=== PATIENT | male | born 1975 | race Caucasian/White ===

== ENCOUNTER 2019-02-17 14:15 | Inpatient (IN) | payer OTHER, SELFPAY ==
[~2019-02-17 14:15] MED LIST: Heparin 1,000 UNITS/ML VIAL ONE; Lidocaine 1% PF 5 ML VIAL ONE; PROPOFOL 200 MG/20 ML VIAL ONE
[2019-02-17 14:47] LABS: Hemoglobin 13.6 g/dL (14.0-18.0); Mean Corpuscular HGB CONC 33.3 g/dL (32.0-36.0); Mean Corpuscular Hemoglobin 28.8 pg (27.0-31.0); Mean Corpuscular Volume 86.7 fL (78.0-98.0); Mean Platelet Volume 8.2 fL (7.4-10.4); Platelet Count 251 thou/uL (130-400); RBC Distribution Width 11.7 % (11.5-14.5); Red Blood Cell (RBC) Count 4.73 mill/uL (4.70-6.10); White Blood Cell (WBC) Count 21.9 thou/uL (4.8-10.8)
[2019-02-17] MEDS ORDERED: Acetaminophen 325 MG TAB ONE (14:47)
--- NOTE | 2019-02-17 14:51 | RAD ---
Exam: XR Knee Rt 4 View STANDARD HISTORY: Right knee pain with redness and swelling after a fall on Saturday. COMPARISON: None FINDINGS: There is evidence of a small suprapatellar joint effusion. No acute fracture, dislocation, or other acute osseous abnormality is identified. IMPRESSION: 1. Small suprapatellar joint effusion. If there is concern for infection, needle sampling may be alysa anted. 2. No acute osseous abnormality.
[2019-02-17 15:03] LABS: Band 31 % (5-11); Dohle Bodies SLIGHT; Lymphocytes 1 % (21-51); MDiff Complete? YES; Monocytes 5 % (0-10); Neutrophil 63 % (42-75); Platelet Morphology Comment Appears Adequate; RBC Morphology Normal; Vacuoles SLIGHT
[2019-02-17 15:10] LABS: ALT (SGPT) 50 U/L (8-55); AST (SGOT) 55 U/L (5-34); Albumin 3.7 g/dL (3.5-5.0); Alkaline Phosphatase 273 U/L (40-110); Anion Gap 15 mmol/L (10-20); BUN (Urea Nitrogen) 28 mg/dL (8.9-20.6); Bilirubin, Total 2.1 mg/dL (0.2-1.2); CK (CPK) 81 U/L (30-200); Calc. Creatinine Clearance 0 mL/min (70-130); Calcium 9.4 mg/dL (7.8-10.44); Carbon Dioxide 27 mmol/L (22-29); Chloride 89 mmol/L (98-107); Estimated GFR-MDRD 60; Glucose 147 mg/dL (70-105); Potassium 4.7 mmol/L (3.5-5.1); Protein, Total 7.7 g/dL (6.0-8.3); Sodium 126 mmol/L (136-145)
[2019-02-17] MEDS ORDERED: Lidocaine 1% w/Epinephrine 1:100K 20 ML VIAL ONE (15:10)
[2019-02-17] MEDS ORDERED: Morphine 4 MG/ML VIAL ONE ×2 (15:17→19:34)
[2019-02-17] MEDS ORDERED: Piperacillin/Tazobactam 4.5 GM VIAL ONE (15:17)
[2019-02-17] MEDS ORDERED: HYDROcodone/Acetaminophen 10/325 mg Tablet PO PRN (16:23)
[2019-02-17] MEDS ORDERED: traMADol HCl 50 MG TAB PO PRN (16:23)
[2019-02-17] MEDS ORDERED: Ondansetron PF 4 MG/2 ML Vial IV PRN (16:23)
[2019-02-17] MEDS ORDERED: Acetaminophen 325 MG TAB PO PRN (16:23)
[2019-02-17] MEDS ORDERED: Fentanyl 100 MCG/2 ML VIAL SLOW IVP PRN (16:23)
[2019-02-17] MEDS ORDERED: Communication Order-Pharmacy FS SCH (16:30)
--- NOTE | 2019-02-17 16:33 | RAD ---
Chest AP view INDICATION: Fever COMPARISON: None FINDINGS: Lungs:There is airspace opacity in the right lower lobe suspicious for developing pneumonia. Cardiac silhouette:The cardiomediastinal silhouette appears within normal limits. Pulmonary vasculature:Normal Pleural spaces:No pleural effusion or pneumothorax is demonstrated. Upper abdomen:No abnormality seen. Osseous structures: No acute osseous abnormality. Additional findings:None. IMPRESSION: Patchy airspace opacity right lower lobe suspicious for developing pneumonia. Recommend r adiographic follow-up to resolution.
[2019-02-17 16:38] LABS: RBC Count-Automated (BF) 84090 /cumm
[2019-02-17 16:46] LABS: BF Color Yellow; Body Fluid Source Synovial Fluid; Clarity Cloudy/Turbid (Clear); Tube # EDTA; WBC/Nucleated-Auto (BF) Greater than 51000 uL
--- NOTE | 2019-02-17 17:03 | HP ---
This is Delia Stout PA-C dictating a report for Jean Carrizales MD. REQUESTING PHYSICIAN: Dr. Philip Preciado. REASON FOR ADMISSION: Right septic knee. HISTORY OF PRESENT ILLNESS: This is a 43-year-old male, who presented to the [facility] today with complaints of redness and swelling to the right knee after a fall on Saturday and fever starting on Saturday. After further questioning, the patient states that he did 1st fall on his knee more than a week ago while playing basketball. He then went to the beach several days later. When he returned into [facility], he states he was working in the kitchen when he fell feeling that his medial knee was injured. He noted some swelling and then the following day noted redness. That is when his fever began. His family member at bedside states that his fever was 102, starting on Saturday, and over the last two days, has been up to 100. He has had some confusion and generalized malaise. No numbness or tingling. He has been active overall. PAST MEDICAL HISTORY: The patient denies. PAST SURGICAL HISTORY: The patient has no surgical history. SOCIAL HISTORY: The patient drinks approximately 1 to 2 beverages per week. He uses Nicorette gum daily. He is currently employed in [employer]. He lives at home with family. FAMILY HISTORY: Reviewed and noncontributory. REVIEW OF SYSTEMS: 10-point review of systems conducted and otherwise negative except for stated above. PHYSICAL EXAMINATION: VITAL SIGNS: Blood pressure of 158/86, pulse of 103, respiratory rate of 28, temperature of 100.3, O2 saturation of 92% on room air. GENERAL: The patient is awake and alert. He is in no apparent distress. He is pleasant and cooperative with exam at this time. He has family member present in the emergency department room at this time. HEENT: Head is normocephalic and atraumatic. NECK: Supple. Trachea midline. LUNGS: Breathing is nonlabored. EXTREMITIES: All 4 extremities were evaluated. The right lower extremity has some noted erythema, particularly to the medial aspect of the knee that seems to streak up the inner thigh, inferior to the patella as well as in the suprapatellar pouch region. There is some clearance of this erythema on the lateral region. There is a Band-Aid present there at this time, where the knee aspirate was performed by the emergency department physician. The patient has difficulty with movement of this joint with flexion or extension. He is currently holding this in a partially flexed position at the knee at approximately 45 degrees of flexion. His hip is externally rotated. He is able to move his toes without any discomfort. No swelling or erythema noted distally. No obvious signs of trauma. There is an obvious joint effusion to the knee. Other three extremities were evaluated. No obvious deformities or injuries are noted. RADIOGRAPHIC IMAGING: Data available for review shows imaging of the right knee showing a suprapatellar joint effusion without any obvious fracture. LABORATORY DATA: Reviewed shows a white blood cell count of 21.9, hemoglobin of 13.6, hematocrit of 41.0, platelet count of 251, and band count of 31%. ASSESSMENT: Septic knee joint, right knee. PLAN: At this time, we will admit this patient to our service. He is n.p.o. and has been n.p.o. since about 11:30 this morning when he had a small meal of apples and yogurt. Given his presentation of knee pain with swelling and erythema in the presence of fever and elevated white blood cell count and bandemia with a purulent knee aspirate, we will plan for a right knee arthrotomy with irrigation and debridement. Cell count and cultures are currently in the lab. We have added on extra laboratory orders including a crystal ID as well as further cultures. The patient also has an ESR and CRP ordered per the emergency room physician. We will plan for surgical intervention later today. Plan of care discussed with the patient and his family member at bedside. They verbalized understanding and are amenable to this. Job ID: [id number]
[2019-02-17 17:08] LABS: BF Segmented Neutrophils 90 %; Cell Count Non Hematic 9 %; Lymphocytes 1 %
[2019-02-17 17:19] LABS: Bacteria/HPF None Seen HPF (None Seen); Bilirubin Negative (Negative); Blood, Urine Negative (Negative); Clarity Clear (Clear); Glucose, Urine (Dipstick) Normal (Negative); Leukocyte Negative Leu/uL (Negative); Nitrite Negative (Negative); Protein, Urine (Dipstick) 70 mg/dL (Neg-Trace); RBC/HPF 0-3 HPF (0-3); Squamous Epithelial None Seen HPF (0-3); Urobilinogen Normal mg/dL (Less than 2)
[2019-02-17] MEDS ORDERED: Vancomycin HCl 1 GM in Premix Bag 1 BAG IVPB SCH (21:00)
[2019-02-17] MEDS ORDERED: Fentanyl 250 MCG/5 ML VIAL ONE (21:30)
[2019-02-17] MEDS ORDERED: Neomycin-Polymyxin 1 ML AMP ONE (21:30)
[2019-02-17] MEDS ORDERED: TETANUS AND DIPHTHERIA TOX/PF 0.5 ML DISP.SYRIN IM SCH (22:00)
[2019-02-17] MEDS ORDERED: Fentanyl 100 MCG/2 ML VIAL ONE (23:25)
[2019-02-17 23:56] VITALS: BMI 24.0
[2019-02-18] MEDS: HYDROcodone/Acetaminophen 10/325 mg Tablet PO PRN ×2 (00:22→12:17)
[2019-02-18] MEDS: Piperacillin/Tazobactam 3.375 GM in Sodium Chloride 0.9% 100 ML IVPB SCH ×3 (00:31→12:16)
[2019-02-18] MEDS ORDERED: Vancomycin HCl 1.25 GM in Sodium Chloride 0.9% 250 ML 250 ML IVPB SCH (02:00)
[2019-02-18 04:43] LABS: Band 31 % (5-11); Lymphocytes 3 % (21-51); MDiff Complete? YES; Mean Corpuscular HGB CONC 32.4 g/dL (32.0-36.0); Mean Corpuscular Hemoglobin 28.9 pg (27.0-31.0); Mean Corpuscular Volume 89.1 fL (78.0-98.0); Mean Platelet Volume 8.3 fL (7.4-10.4); Neutrophil 66 % (42-75); Platelet Count 182 thou/uL (130-400); Platelet Morphology Comment Appears Adequate; RBC Distribution Width 11.8 % (11.5-14.5); Red Blood Cell (RBC) Count 4.15 mill/uL (4.70-6.10); White Blood Cell (WBC) Count 20.3 thou/uL (4.8-10.8)
[2019-02-18 04:45] LABS: ALT (SGPT) 69 U/L (8-55); AST (SGOT) 70 U/L (5-34); Albumin 3.2 g/dL (3.5-5.0); Alkaline Phosphatase 235 U/L (40-110); Anion Gap 16 mmol/L (10-20); BUN (Urea Nitrogen) 24 mg/dL (8.9-20.6); Bilirubin, Total 2.4 mg/dL (0.2-1.2); Calc. Creatinine Clearance 101 mL/min (70-130); Calcium 8.8 mg/dL (7.8-10.44); Carbon Dioxide 24 mmol/L (22-29); Chloride 101 mmol/L (98-107); Estimated GFR-MDRD 70; Globulin 3.4 g/dL (2.4-3.5); Glucose 144 mg/dL (70-105); Potassium 5.1 mmol/L (3.5-5.1); Protein, Total 6.6 g/dL (6.0-8.3); Sodium 136 mmol/L (136-145)
--- NOTE | 2019-02-18 06:57 | OP ---
DATE OF PROCEDURE: 02/17/2019 PREOPERATIVE DIAGNOSIS: Right septic knee. POSTOPERATIVE DIAGNOSIS: Right septic knee. SURGICAL PROCEDURE: Arthrotomy with irrigation of right septic knee. ANESTHESIA: General. TOURNIQUET TIME: 25 minutes at 300 mmHg. DRAINS: Hemovac x1. SPECIMEN: Aspirate was obtained in the emergency room. COMPLICATIONS: None. INDICATIONS: Mr. Patel is a 43-year-old gentleman with a 4-day history of increasing right knee pain, swelling, and fevers. The patient has had a small laceration, abrasion over the anterior aspect of the tibial tubercle and then a couple of small falls with traumatic injury to the knee. This has ultimately resulted in a very painful knee that is red, swollen with erythema along the medial aspect of the knee heading up the medial thigh. Upon presentation to the emergency room, an aspirate of the knee was obtained that showed 51,000 white blood cells, and Gram stain revealed gram-positive coccus in pairs and strings. As such, patient now to undergo irrigation of this knee. He has received antibiotics in the emergency room. Informed consent has been obtained. DESCRIPTION OF PROCEDURE: The patient was brought to the operating room and a time-out performed followed by induction of general anesthesia. Next, a sterile prep and drape was performed of the right lower extremity. A small superomedial parapatellar incision was made after the skin was sharply incised. Dissection was carried down bluntly entering the joint with purulent material coming up from the joint itself. Through this hole, a cystoscopy tube was introduced and then a second small arthrotomy was made at the anterior lateral joint line. Again, a scalpel was used and the joint was entered. A Kaur suction tip was passed into this arthrotomy to allow for xbdkcce-pwo-wtttyoc irrigation of the knee. It should be noted that prior to either of these 2 incisions, the limb was elevated and tourniquet inflated to 300 mmHg. Next, 5 L of normal saline was irrigated through the knee, manipulating the knee during this irrigation as well as moving the Kaur tip to the various compartments of the knee to try and get a thorough flow and irrigation. By the end of the irrigation, the fluid coming out from the knee was completely clear. Excess fluid was then suctioned from the knee and the catheters were removed. A medium Hemovac drain was then inserted through this superior medial portal and then this portal closed with nylon in interrupted fashion. The anterior lateral portal also closed with nylon. A gauze, Kerlix, and Kasi wrap dressing was then applied to the knee and patient was transferred to recovery room in stable condition. The tourniquet was let down at the completion of dressing. There were no complications and he tolerated the procedure well. Job ID: [id number]
[2019-02-18] MEDS ORDERED: EPINEPHrine 0.3 MG in Ophthalmic Irrigation Solution 500 ML IVP SCH (10:30)
--- NOTE | 2019-02-18 14:03 | CON ---
DATE OF CONSULTATION: 02/18/2019 REASON FOR CONSULTATION: Right knee septic arthritis. HISTORY OF PRESENT ILLNESS: A 43-year-old, otherwise healthy, who developed acute onset of inflammatory changes in the right knee which developed about 4 days before admission. The week before, he had fallen on the knee and had some superficial abrasions. This Saturday, development was associated with fever, and he eventually ended up admitted, had blood cultures which yielded group A Streptococcus, had arthrocentesis with 51,000 wbc's with a predominance of mature neutrophils, had a washout. Coincidentally, influenza screen was done, and it showed influenza A and B antigen positivity although the patient has had no respiratory symptoms associated with the admission. Otherwise, no headaches. No visual symptoms. No chest pain. No abdominal pain. No diarrhea. No genitourinary symptoms. No other joint symptoms. No neurological symptoms. PAST MEDICAL HISTORY: Otherwise, negative. SOCIAL HISTORY: He is a current smoker, and he , with children, lives in the area. Works in a restaurant apparently. FAMILY HISTORY: Noncontributory. Nobody sick in the family. ALLERGIES: NONE. CURRENT MEDICATIONS: 1. Tylenol. 2. [place]. 3. Sublimaze. 4. Zofran. 5. Zosyn. 6. Vancomycin. PHYSICAL EXAMINATION: VITAL SIGNS: T-max 98, blood pressure 130/70, pulse 83, respirations 18, O2 saturation 100%. SKIN: Shows the right knee findings postop arthroscopy; findings, which are not out of the usual and for this intervention. The patient has a peripheral IV access. LYMPHATICS: No lymphadenopathy. HEENT: Normal. NECK: Supple. LUNGS: Symmetric. Clear breath sounds. HEART: S1 and S2. Regular rate. No S3 or S4. ABDOMEN: Soft. Not distended or tender. No ascites. : No bladder distention. No genital abnormalities. EXTREMITIES: Pulses are excellent in the lower extremities. Usual, the expected range of motion limitation in right knee with swelling, moderate. NEUROLOGIC: Nonfocal. LABORATORY DATA: White cell count 21.9 and 20.3, hemoglobin 13.6, platelets are 251, 30% bands. Creatinine was 1.32, and now is 1.15. Bilirubin 2.1 and 2.4, AST 55 and 70, ALT 69, albumin 3.2. Urinalysis was fairly normal. Synovial fluid with 51,000 wbc's with predominance of mature neutrophils; cultures with Streptococcus pyogenes 1/2 sets. Preliminary knee aspirate cultures with gram-positive cocci in pairs and chains. He also had influenza A and B screen positive. The interpretation of the results shows that it is inconclusive; in other words, the patient probably has a false-positive sample. ASSESSMENT: Otherwise, healthy middle-aged man with acute septic arthritis, right knee with bacteremia secondary to group A Streptococcus. Influenza antigen results are probably false positives, we will submit an influenza NICK test to confirm it or rule it out. Switch him to Rocephin. PICC line placement, treat for 3 weeks in the outpatient setting. Job ID: [id number]
[2019-02-18] MEDS: cefTRIAXone\\ROCEPHIN 2 GM in Sodium Chloride 0.9% 100 ML IVPB SCH (15:01)
[2019-02-18] MEDS ORDERED: Calcium Carbonate 500 MG ChewTAB PO PRN (15:39)
[2019-02-19] MEDS: HYDROcodone/Acetaminophen 10/325 mg Tablet PO PRN ×2 (03:12→13:01)
--- NOTE | 2019-02-19 14:02 | SPC ---
Ultrasound and Fluoroscopic guided right upper extremity PICC placement HISTORY: Right knee infection. Patient needs long-term IV antibiotics FINDINGS: Informed consent obtained prior to the procedure. An appropriate access site was determined with ultrasound guidance. The area was then meticulously pr epped and draped in usual sterile fashion. Skin overlying the right basilic vein anesthetized with 1% buffered lidocaine. Utilizing direct sonog raphic guidance, vascular access is obtained via the right basilic vein, and an 0.018in guidewire was advanced to the cavoatrial junction. Intravascular length is calculated at 40 cm, and the PICC is cut accordingly. Needle is removed and replaced with a peel-away sheath. The PICC was advanced over the wire. Wire and peel-away sheath were removed. The tip of the catheter overlies the cavoatrial junction. The catheter was accessed and aspirated/flushed easily. Exposure data: 0.2 minutes of fluoroscopic time 746 mGy centimeter squared FINDINGS: Technically successful placement of a 40 centimeter single lumen 5 [place] right upper extremity PICC line. IMPRESSION: Successful ultrasound guided placement of a right upper extremity PICC.
[2019-02-19] MEDS: cefTRIAXone\\ROCEPHIN 2 GM in Sodium Chloride 0.9% 100 ML IVPB SCH (14:14)
[2019-02-19 15:32] VITALS: BP 126/68; TEMP 98.4
--- NOTE | 2019-02-20 08:19 | PQF ---
Ramirez Patel ANTHONY, MD [id number] CLINICAL DOCUMENTATION CLARIFICATION FORM: POST DISCHARGE Addendum to original discharge summary date: ____ Late entry note date: __ DATE: 02/20/2019 ATTN:ANALI CARRIZALES MD Please exercise your independent, professional judgment in responding to the clarification form. Clinical indicators are provided on the bottom of this form for your review Please check appropriate box(es): [ ] Sepsis due to: (Pna, UTI, gangrenous gall bladder, etc.) Due to: [ ] Device (please specify) [ ] Implant [ ] Graft [ ] Infusion [ ] SIRS due to non-infectious process (please specify etiology) [ ] with organ dysfunction [ ] without organ dysfunction [ ] Severe sepsis with acute organ dysfunction of: (Examples: respiratory failure, encephalopathy, acute kidney failure, other) [ ] Septic Shock [ ] Localized infection without sepsis [ ] Other diagnosis [ ] Unable to determine In addition, please specify: Present on Admission (POA): [ ] Yes [ ] No [ ] Unable to determine For continuity of documentation, please document condition throughout progress notes and discharge summary. Thank You. CLINICAL INDICATORS - SIGNS / SYMPTOMS / LABS [id number] in H&P on 02/17 by Argelia Joseph [id number] in H&P on 02/17 by Argelia Joseph Temperature of 100.3-Documented in H&P on 02/17 by Argelia Joseph WBC-21.9-Documented in H&P on 02/17 by Argelia Jsoeph Septic knee joint,Right knee-Documented in H&P on 02/17 by Argelia Joseph Acute septic arthritis right knee with bacteremia secondary to group A streptococcus-Documented in consultation report on 02/18 by Anibal Rodriguez MD RISK FACTORS Acute septic arthritis right knee-Documented in consultation report on 02/18 by Anibal Rodriguez MD TREATMENTS: Switch him to rocephin-Documented in consultation report on 02/18 by Anibal Rodriguez MD Arthrotomy with irrigation of right septic knee-Documented in OP note on 02/17 by Anali Carrizales MD [employer] Win[employer] (This form is maintained as a part of the permanent medical record) 2014 [employer]. All Rights Reserved [email or web address] [not provided] MTDD
--- NOTE | 2019-02-20 13:30 | DIS ---
DATE OF ADMISSION: 02/17/2019 DATE OF DISCHARGE: 02/19/2019 This is Delia Stout PA-C dictating a report for Jean Carrizales MD. REASON FOR ADMISSION: Right septic knee. CONSULTANTS: Include Dr. Rodriguez. PREOPERATIVE DIAGNOSIS: Septic knee, right. PROCEDURE PERFORMED: Arthrotomy of right knee with irrigation and debridement. BRIEF HOSPITAL COURSE: This is a 43-year-old male, who presented to the [facility] with complaints of red swollen knee as well as fever up to 102. He reported some vague trauma in the past 2 weeks leading up to his admission. He underwent a bedside aspiration by the emergency department physician, which revealed gross purulent material in the amount of greater than 60 mL. This aspirate obtained showed 51,000 white blood cells, and Gram stain revealed a gram-positive cocci in pair and string. The patient was indicated for the above-mentioned procedure. He received antibiotics in the emergency room. Postoperatively, he was admitted to [place] [address], where he received postoperative antibiotics until a final culture grew out Streptococcus pyogenes. A PICC line was placed and the patient was discharged on IV Rocephin. Drain to the right knee was discontinued on postoperative day #2. There was a very little output from his drain and it fell out spontaneously. The patient tolerated the PICC line placement as well as the IV antibiotics. He was scheduled to follow up with in-house Oncology for outpatient IV antibiotic treatment. He was discharged home in stable condition. No complications were incurred during his hospital stay. DISCHARGE DISPOSITION: Home. DISCHARGE CONDITION: Stable. DISCHARGE INSTRUCTIONS: The patient will follow up as scheduled with outpatient IV PICC line antibiotic arrangements. He will keep his knee clean, dry, and covered until followup in the [facility] in 7 to 10 days. DISCHARGE MEDICATIONS: See JUN. Job ID: [id number]
== END 2019-02-19 17:00 | disposition home or self-care (01) | DRG 487 ==
LOC: ERS 14:15 → SDC/OP 20:57 → SURG A 23:19
PROVIDERS: ADMIT Orthopaedic Surgery; ATTEND Orthopaedic Surgery
PROC: 0S9C00Z Drainage of Right Knee Joint with Drainage Device, Open Approach (ICD-10-PCS; principal; 2019-02-17)
PROC: 02HV33Z Insertion of Infusion Device into Superior Vena Cava, Percutaneous Approach (ICD-10-PCS; 2019-02-19)
PROC: B548ZZA Ultrasonography of Superior Vena Cava, Guidance (ICD-10-PCS; 2019-02-19)
DX: M00.861 Arthritis due to other bacteria, right knee (principal); F17.200 Nicotine dependence, unspecified, uncomplicated; B95.0 Streptococcus, group A, as the cause of diseases classified elsewhere
CPT/HCPCS: 20611; 36415; 36569; 71045; 80053; 81003; 81015; 82550; 82945; 83605; 85025; 85060; 85652; 86140; 87040; 87070; 87077; 87081; 87086; 87149; 87186; 87205; 87631; 87804; 89051; 89060; 93005; 96361; 96365; 96367; 96375; 96376; C1751; J0131; J0696; J1644; J1956; J2001; J2270; J2543; J2704; J3010; J3370; J3490; J7050